=== PATIENT | female | born 1985 | race Caucasian/White ===

== ENCOUNTER → 2024-09-18 07:05 | Outpatient (CLI) | payer OTHER, SELFPAY ==
--- NOTE | 2024-09-18 07:08 | DI.MRI.S_ITS ---
PROCEDURE: MR KNEE LT WO CON INDICATIONS: PAIN IN LEFT KNEE TECHNIQUE: Noncontrast sagittal PD fast spin echo and T2 fast spin echo with fat saturation, sagittal 3-D FLASH with fat saturation; coronal T1 spin echo and PD fast spin echo with fat saturation, and axial PD fast spin echo with fat saturation through the knee. COMPARISON: None. FINDINGS: Image quality: Diagnostic Menisci: Medial: No significant tear. Minimal degree of peripheral fraying is seen Lateral: No significant tear Cruciate ligaments: Intact Medial structures: MCL: Intact Pes anserine tendons: Intact Semimembranosus: Intact Lateral structures: LCL: Mild thickening and signal abnormality of the femoral origin Biceps femoris: Intact IT band: Intact Popliteus tendon: Intact Anterior structures: Extensor mechanism: Intact Fat pads: Minimal lateral Hoffa's fat pad edema Medial retinaculum: Intact. Trochlea: TT TG distance at the upper limit of normal, 1.3 centimeters. Slight lateral patellar tilt Bone and joint: Bones: No acute fracture Cartilage: Focal fissure and subchondral edema at the patellar median ridge. There is patellar cartilage heterogeneity, most significant at the lateral facet No significant defect in the medial or lateral compartments. Joint space: Trace effusion Calvin's cyst: None Soft tissues: No significant vascular or other soft tissue pathology. IMPRESSION: No significant meniscal tear. Intact cruciate ligaments. Intact MCL. Possible mild sprain of the proximal LCL. Slight lateral patellar tilt with mild lateral Hoffa's fat pad edema, sometimes seen with maltracking, although TT TG distance is within normal limits. More focal cartilage heterogeneity in the lateral patellar facet, with focal subchondral edema at the median ridge. Trace joint effusion Dictated by: Aneudy Robles M.D. on 09/18/2024 at 9:32 Approved by: Aneudy Robles M.D. on 09/18/2024 at 9:36
== END ==
PROVIDERS: Referring Provider Nurse Practitioner Family; Visit Provider Nurse Practitioner Family
DX: M25.562 Pain in left knee (principal)
CPT/HCPCS: 73721